=== PATIENT | female | born 1990 | race African-American/Black ===

== ENCOUNTER 2019-12-09 13:36 | Emergency (ER) | payer SELFPAY ==
[2019-12-09 13:51] VITALS: BP 122/96; PULSE 96; TEMP 98.6; BMI 25.8
--- NOTE | 2019-12-09 13:57 | PDOC ---
Rapid Medical Evaluation Medical Evaluation: Allergies Allergy/AdvReac Type Severity Reaction Status Date / Time No Known Allergies Allergy Verified 12/09/19 13:44 Vital Signs Temp Pulse Resp BP Pulse Ox 98.6 F 96 H 18 122/96 100 12/09/19 13:44 12/09/19 13:44 12/09/19 13:44 12/09/19 13:44 12/09/19 13:44 12/09/19 13:51 28 yo F h/o scoliosis, anemia requiring blood transfusions in the past, asthma, positive covid 08/2019 c/o mid back pain x 1 week, cp, sob since yesterday. denies abd pain, n/v/d/f/c, cough, recent travel, leg pain, leg swelling. not taking ocp's. smokes hookah. tachypneic resp: CTAB cardio: rrr, no m/g/r A/P: SOB, Chest pressure labs, ddimer cxr, ecg main ED
[2019-12-09] MEDS ORDERED: ACETAMINOPHEN 1000 MG/100 ML VIAL (NON FORMULARY) IVPB ONE (14:40)
[2019-12-09] MEDS ORDERED: SODIUM CHLORIDE 1,000 ML IV STA (14:40)
[2019-12-09] MEDS ORDERED: ACETAMINOPHEN 325 MG TABLET (FP) ONE (14:41)
--- NOTE | 2019-12-09 14:59 | PDOC ---
History of Present Illness - General Chief Complaint: Shortness of Breath Stated Complaint: SOB / BODY ACHES Time Seen by Provider: 12/09/19 14:16 - History of Present Illness Initial Comments: 12/09/19 14:45 HPI: 28 y/o F with hx of scoliosis, anemia requiring blood transfusions in the past, asthma, asymptomatic positive covid 08/2019 presenting with left sided and midsternal chest pressure that started just prior to arrival. She was getting up from her desk when she felt the pressure and was associated with SOB on exertion and JAQUEZ. She was concerned because of the COVID+ hx. She also reports over the past week her scoliosis back pain has been flaring with sharp pain in her mid back that was nonradiating with a pleuritic component. She denies fever, chills, LH, abd pain, n/v, diahporesis, LOC. No recent travel. She denies OCP use PMHx: as noted above ROS: as noted SHx: social hookah tobacco use; occ alcohol use; no rec drugs Allergies: NKDA ROS: GENERAL/CONSTITUTIONAL: No fever or chills. No weakness. HEAD, EYES, EARS, NOSE AND THROAT: No change in vision. No ear pain or discharge. No sore throat. CARDIOVASCULAR: +chest pain and shortness of breath RESPIRATORY: No cough, wheezing, or hemoptysis. GASTROINTESTINAL: No nausea, vomiting, diarrhea or constipation. GENITOURINARY: No dysuria, frequency, or change in urination. MUSCULOSKELETAL: +back pain. SKIN: No rash NEUROLOGIC: +headache; no vertigo, loss of consciousness, or change in strength/sensation. ENDOCRINE: No increased thirst. No abnormal weight change HEMATOLOGIC/LYMPHATIC: No anemia, easy bleeding, or history of blood clots. ALLERGIC/IMMUNOLOGIC: No hives or skin allergy. PE: GENERAL: Awake, alert, and fully oriented, no acute distress HEAD: No signs of trauma, normocephalic, atraumatic EYES: EOMI, sclera anicteric, conjunctiva clear ENT: Auricles normal inspection, hearing grossly normal, nares patent, oropharynx clear without exudates. Moist mucosa NECK: Normal ROM, no lymphadenopathy LUNGS: No increased work of breathing, symmetrical chest rise, clear to auscultation bilaterally, no wheezes, crackles or rhonchi HEART: Regular rate, regular rhythm, normal S1 and S2, no murmur, peripheral pulses 2+ and equal bilaterally. ABDOMEN: Soft, nondistended, nontender. No guarding, no rebound. No masses. No CVAT MUSCULOSKELETAL: FROM, no LE edema, no calf ttp NEUROLOGICAL: Cranial nerves II through XII grossly intact. Normal speech, normal gait, no focal sensorimotor deficits SKIN: Warm, Dry, normal turgor, no rashes or lesions noted Past History - Medical History Allergies/Adverse Reactions: Allergies Allergy/AdvReac Type Severity Reaction Status Date / Time No Known Allergies Allergy Verified 12/09/19 13:44 Home Medications: Ambulatory Orders Iron,Carbonyl [Iron] 325 mg PO BID #0 tablet 09/22/12 Pnv No.95/Ferrous Fum/Folic AC [ Tablet] 1 tab PO DAILY #0 tablet 09/22/12 Acetaminophen [Tylenol .Regular Strength -] 650 mg PO Q3H PRN #0 tablet 10/16/12 Benzocaine [Americaine 20% [place] -] 1 spray TP PRN PRN #0 spraybtl 10/16/12 Ibuprofen [Motrin -] 600 mg PO Q4H PRN #0 tablet 10/16/12 Witch Ally 50% (Tucks) [Tucks Pads -] 1 pad TP PRN PRN #0 pad 10/16/12 Asthma: No Cancer: No Cardiac Disorders: No COPD: No Diabetes: No HTN: No Seizures: No Thyroid Disease: No - Psycho-Social/Smoking History Smoking History: Current some day smoker Have you smoked in the past 12 months: No Information on smoking cessation initiated: No - Substance Abuse Hx (Audit-C & DAST Scrn) How often the patient has a drink containing alcohol: Monthly or less Number of drinks the patient has on a typical day: 1 or 2 How often the patient has six or more drinks on one occasion: Never Score: In Men: 4 or > Positive; In Women: 3 or > Positive: 1 Screen Result (Pos requires Nsg. Audit-10AR): Negative In the last yr the pt used illegal drug/Rx for NonMed reason: No Score: Yes response is considered Positive: 0 Screen Result (Positive result requires Nsg. DAST-10): Negative *Physical Exam - Vital Signs Last Vital Signs Temp Pulse Resp BP Pulse Ox 98.6 F 96 H 18 122/96 100 12/09/19 13:44 12/09/19 13:44 12/09/19 13:44 12/09/19 13:44 12/09/19 13:44 ED Treatment Course - LABORATORY CBC & Chemistry Diagram: 12/09/19 14:30 12/09/19 14:30 Medical Decision Making - Medical Decision Making 12/09/19 14:59 28 y/o F with hx of scoliosis, anemia requiring blood transfusions in the past, asthma, asymptomatic positive covid 08/2019 presenting with left sided and midsternal chest pressure that started just prior to arrival associated with SOB and JAQUEZ. HR 96, 100% sats. PE unremarkable. DDx includes acs, pna, pe, covid, msk -cbc, cmp, card prof, d dimer, ekg, cxr -tylenol, ivf 12/09/19 16:02 labs wnl ekg nsr with no stoney/d cxr with no acute pathology discussed with patient results and discussed unlikely cardiac/pulm etiology will DC home conservative management Discharge - Discharge Information Problems reviewed: Yes Clinical Impression/Diagnosis: Chest pressure Condition: Improved Disposition: HOME - Follow up/Referral - Patient Discharge Instructions Patient Printed Discharge Instructions: DI for Shortness of Breath Additional Instructions: Additional Instructions: Please return to the emergency department with any new or worsening symptoms or concerns. Please follow up with your primary care physician within 72 hours. You may take tylenol 650mg and ibuprofen 600mg every 6-8 hours - Post Discharge Activity
--- NOTE | 2019-12-09 15:22 | PDOC ---
Documentation entered by Hilda Velasquez SCRIBE, acting as scribe for Aníbal Roberson MD. Aníbal Roberson MD: This documentation has been prepared by the Ron joe Nirvannie, SCRIBE, under my direction and personally reviewed by me in its entirety. I confirm that the documentation accurately reflects all work, treatment, procedures, and medical decision making performed by me. Attending Attestation - Resident Resident Name: DarrelChristoph - ED Attending Attestation I have performed the following: I have examined & evaluated the patient, The case was reviewed & discussed with the resident, I agree w/resident's findings & plan, Exceptions are as noted - HPI HPI: 12/09/19 15:03 The patient is a 28 year old female with a significant past medical history of anemia (requiring transfusions), asthma, scoliosis, and asymptomatic COVID positive (09/09) who presents to the ED with left and midsternal chest pressure with associated exertional dyspnea and headache. As per patient, her symptoms started just prior to her arrival to the ED. Additionally, the patient reports positional mid-back pain which she attributes to her scoliosis. She denies any recent long distance travel or oral contraceptive usage. No leg swelling. Allergies: NKDA - Physicial Exam PE: 12/09/19 15:25 "GENERAL: Awake, alert, and fully oriented, in no acute distress. HEAD: No signs of trauma EYES: PERRLA, EOMI, sclera anicteric, conjunctiva clear ENT: Auricles normal inspection, hearing grossly normal, nares patent, oropharynx clear without exudates. Moist mucosa NECK: Nontender, no stepoffs, Normal ROM, supple, no lymphadenopathy, JVD, or masses LUNGS: Breath sounds equal, clear to auscultation bilaterally. No wheezes, and no crackles HEART: Regular rate and rhythm, normal S1 and S2, no murmurs, rubs or gallops ABDOMEN: Soft, nontender, normoactive bowel sounds. No guarding, no rebound. No masses EXTREMITIES: Normal range of motion, no edema. No clubbing or cyanosis. No cords, erythema, or tenderness NEUROLOGICAL: Cranial nerves II through XII intact. 5/5 strength and sensation in all extremities, Normal speech, normal gait, normal cerebellar function SKIN: Warm, Dry, normal turgor, no rashes or lesions noted. - Medical Decision Making 12/09/19 15:25 28 F with chest pain, ROSADO. Recent positive COVID swab. - Labs, trop, Ddimer - EKG - CXR 12/09/19 16:01 Labs wnl Trop and dimer negative CXR clear on my read Pt is well appearing, with normal vitals. Clinically stable for DC at this time. I discussed the physical exam findings, ancillary test results and final diagnoses with the patient. I answered all of the patient's questions. The patient was satisfied with the care received and felt comfortable with the discharge plan and treatment plan. The patient agrees to follow up with the primary care physician within 24-72 hours. Please note this patient was evaluated during the COVID-19 crisis with the presidential [place] Act Declaration and the [place] governky executive order number 202. He/she was evaluated and clinical decisions were made relative to healthcare system resources as well as clinical picture during a pandemic crisis situation. Discharge - Discharge Information Problems reviewed: Yes Clinical Impression/Diagnosis: Chest pain, ROSADO (dyspnea on exertion), Back pain - Follow up/Referral - Patient Discharge Instructions - Post Discharge Activity
[2019-12-09 15:27] LABS: BASO % 0.2 % (0-2.0); HEMATOCRIT 34.7 % (32.4-45.2); HEMOGLOBIN 11.2 GM/dL (10.7-15.3); LYMPH % 25.5 % (8-40); MCH 31.9 pg (25.7-33.7); MCHC 32.4 g/dl (32.0-36.0); MEAN CELL VOLUME 98.5 fl (80-96); MEAN PLT VOLUME 11.7 fl (7.5-11.1); NEUT % 65.3 % (42.8-82.8); PLATELET COUNT 189 K/MM3 (134-434); RBC 3.52 M/mm3 (3.60-5.2); RDW 14.9 % (11.6-15.6); WHITE BLOOD COUNT 6.7 K/mm3 (4.0-10.0)
[2019-12-09 15:39] LABS: INR 0.97 (0.83-1.09); PROTHROMBIN TIME (PATIENT) 11.4 SEC (9.7-13.0)
[2019-12-09 15:41] LABS: ACTIVATED PTT 36.6 SECONDS (25.2-36.5)
[2019-12-09 15:58] LABS: ALBUMIN 4.3 g/dl (3.4-5.0); ALK PHOS 78 U/L (45-117); ANION GAP 7 MMOL/L (8-16); BILIRUBIN,TOTAL 0.2 mg/dL (0.2-1); BLOOD UREA NITROGEN 13.2 mg/dL (7-18); CALCIUM 8.9 mg/dL (8.5-10.1); CHLORIDE 106 mmol/L (98-107); CO2 26 mmol/L (21-32); CREATININE 0.8 mg/dL (0.55-1.3); GLUCOSE,RANDOM 93 mg/dL (74-106); POTASSIUM 4.3 mmol/L (3.5-5.1); SGOT/AST 23 U/L (15-37); SGPT/ALT 34 U/L (13-61); SODIUM 139 mmol/L (136-145); TOT PROT 7.6 g/dl (6.4-8.2)
[2019-12-09 16:41] LABS: EPI CELLS 18 /uL (0-25.1); HYALINE CASTS 1 /uL (0-3.1); PH,URINE 6.5 (5.0-8.0); URINE APPEARANCE CLOUDY; URINE BILIRUBIN NEGATIVE (NEGATIVE); URINE COLOR YELLOW; URINE GLUCOSE (UA) NEGATIVE (NEGATIVE); URINE KETONE NEGATIVE (NEGATIVE); URINE LEUK ESTERASE TRACE (NEGATIVE); URINE NITRITE NEGATIVE (NEGATIVE); URINE PROTEIN NEGATIVE (NEGATIVE); URINE RBC 2 /uL (0-23.9); URINE WBC 32 /uL (0-25.8)
[2019-12-09 16:42] LABS: HCG,QUALITATIVE URINE Negative
--- NOTE | 2019-12-10 10:28 | EKG ---
Test Reason : Blood Pressure : / mmHG Vent. Rate : 078 BPM Atrial Rate : 078 BPM P-R Int : 162 ms QRS Dur : 070 ms QT Int : 366 ms P-R-T Axes : 037 036 050 degrees QTc Int : 417 ms NORMAL SINUS RHYTHM WITH SINUS ARRHYTHMIA NORMAL ECG Confirmed by EMILE MUNROE MD ([id number]) on 12/10/2019 10:28:16 AM Referred By: Confirmed By:EMILE MUNROE MD
== END 2019-12-09 16:30 | disposition home or self-care (01) ==
LOC: JER 13:36
PROC: 3E0337Z Introduction of Electrolytic and Water Balance Substance into Peripheral Vein, Percutaneous Approach (ICD-10-PCS; principal; 2019-12-09)
DX: R07.89 Other chest pain (principal); R06.09 Other forms of dyspnea; M54.9 Dorsalgia, unspecified
CPT/HCPCS: 36415; 71045-TC-FY; 80053; 81003; 82550; 84484; 84703; 85025; 85379; 85610; 85730; 93005; 93010; 99285-25